=== PATIENT | male | born 1965 | race Caucasian/White ===

== ENCOUNTER 2017-11-07 19:04 | Emergency (ER) | payer BC, OTHER ==
[~2017-11-07] VITALS: Ht 188 cm; Wt 104.2 kg
[2017-11-07 19:14] VITALS: TEMP 37; Ht 188 cm; Wt 104.2 kg
--- NOTE | 2017-11-07 19:34 | EMERGENCY ROOM VISIT NOTE ---
History Report prepared by Salma: Shayla Cruz Under the Supervision of: Dr. Pavel Nash M.D. 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 Positive burning with urination, lower left sided back pain. Negative nausea, vomiting, recent trauma, scrotal pain, testicular pain, history of kidney stones. He notes when he woke up this morning, he had difficulty urinating and it was burning. He reports he tried drinking water all day, but then he began having hematuria with small clots. He is accompanied by his who reports that her 's urine has gotten bloodier since his first episode. The patient states he was recently seen at his PCP for fluid in his ears and notes he recently changed his diet to try and control his blood pressure. Source of History: patient, spouse/significant other () Onset: 4 hours sea captain Position: other (bladder) Quality: burning Timing: other (urine is getting bloodier since it began) Associated Symptoms: + back pain (lower left side), + urinary symptoms, No nausea, No vomiting Note: Negative recent trauma, scrotal pain, testicular pain, history of kidney stones Review of Systems See HPI for pertinent positives and negatives. A total of ten systems were reviewed and were otherwise negative. Past Medical & Surgical Medical Problems: (1) Diabetes (2) HTN (hypertension) Surgical Problems: (1) Hx of cholecystectomy Family History Diabetes mellitus High blood pressure Social History Smoking Status: Never Smoker Smokeless Tobacco Use: Yes Alcohol Use: occasionally Marital Status: Occupation Status: employed Current/Historical Medications Scheduled Ciprofloxacin Hcl (Cipro), 500 MG PO BID [Garlic Oil], 1 DOSE PO DAILY Scheduled PRN Ibuprofen Tab (Advil), 400-600 MG PO Q6H PRN for Pain Phenazopyridine HCl (Pyridium), 200 MG PO TID PRN for Frequency/Burning w/ Urination Allergies Coded Allergies: No Known Allergies (Unverified , 06/26/09) Physical Exam Vital Signs Date Time Temp Pulse Resp B/P (MAP) Pulse Ox O2 Delivery O2 Flow Rate FiO2 11/07/17 21:24 85 18 129/83 98 11/07/17 20:20 66 24 141/87 96 Room Air 11/07/17 19:14 37.0 82 18 152/91 100 Room Air Physical Exam GENERAL: Awake, alert, well-appearing, NAD HENT: Normocephalic, atraumatic. Clear fluid behind each TM. EYES: Normal conjunctiva. Sclera non-icteric. PERRL. No anisocoria. NECK: Supple. No nuchal rigidity. FROM. RESPIRATORY: CTAB, no rhonchi, wheezing, crackles CARDIAC: RRR, no MRG ABDOMEN: Soft, NTND, BS+ MSK: No chest wall TTP, no LE edema. No CVA TTP. NEURO: GCS 15, CN 2-12 intact, moves all 4s on command SKIN: No rash or jaundice noted. Medical Decision & Procedures ER Provider Diagnostic Interpretation: Radiology results as stated below per my review and radiologist interpretation: ABD/PELVIS WITHOUT FOR STONE CT DOSE: 1247.10 mGy.cm HISTORY: Flank pain FLANK PAIN TECHNIQUE: Multiaxial CT images of the abdomen and pelvis were performed without the use of intravenous and oral contrast according to the standard department stone protocol. A dose lowering technique was utilized adhering to the principles of ALARA. COMPARISON STUDY: None. FINDINGS: Minimal basilar dependent atelectasis. Prior cholecystectomy. Liver spleen and pancreas appear unremarkable. The adrenal glands are normal. Right kidney is negative for hydronephrosis. Left kidney is slightly edematous, with a trace amount of perinephric fat stranding. Prominence of the left renal pelvis. No evidence for well-defined obstructing calculus. Differential must include a recently passed calculus versus pyelonephritis. No evidence for abscess collection or obstructive change. Bladder is midline. The bowel pattern is considered nonobstructive. Normal appendix. IMPRESSION: 1. Mild edematous change of the left kidney with a trace amount of perinephric fat stranding. 2. No evidence for an obstructing calculus. 3. Diagnostic considerations include pyelonephritis versus recently passed calculus. The above report was generated using voice recognition software. It may contain grammatical, syntax or spelling errors. Electronically signed by: Sean Mcmillan M.D. 11/07/2017 8:17 PM Laboratory Results 11/07/17 19:50 Red Blood Count 4.86, Mean Corpuscular Volume 85.6, Mean Corpuscular Hemoglobin 29.4, Mean Corpuscular Hemoglobin Concent 34.4, Mean Platelet Volume 10.4, Neutrophils (%) (Auto) 81.9, Lymphocytes (%) (Auto) 6.5, Monocytes (%) (Auto) 10.4, Eosinophils (%) (Auto) 0.7, Basophils (%) (Auto) 0.2, Neutrophils # (Auto ) 13.09, Lymphocytes # (Auto) 1.04, Monocytes # (Auto) 1.66, Eosinophils # (Auto ) 0.11, Basophils # (Auto) 0.03 11/07/17 19:50 Test 11/07/17 19:10 11/07/17 19:50 Urine Color YELLOW Urine Appearance CLEAR (CLEAR) Urine pH 6.0 (4.5-7.5) Urine Specific Villanueva 1.020 (1.000-1.030) Urine Protein 3+ (NEG) Urine Glucose (UA) NEG (NEG) Urine Ketones NEG (NEG) Urine Occult Blood 2+ (NEG) Urine Nitrite POS (NEG) Urine Bilirubin NEG (NEG) Urine Urobilinogen NEG (NEG) Urine Leukocyte Esterase LARGE (NEG) Urine RBC >30 /hpf (0-4) Urine WBC >30 /hpf (0-5) Urine Epithelial Cells 0-5 /lpf (0-5) Urine Bacteria 4+ (NEG) White Blood Count 15.98 K/uL (4.8-10.8) Red Blood Count 4.86 M/uL (4.7-6.1) Hemoglobin 14.3 g/dL (14.0-18.0) Hematocrit 41.6 % (42-52) Mean Corpuscular Volume 85.6 fL (80-100) Mean Corpuscular Hemoglobin 29.4 pg (25-34) Mean Corpuscular Hemoglobin Concent 34.4 g/dl (32-36) Platelet Count 233 K/uL (130-400) Mean Platelet Volume 10.4 fL (7.4-10.4) Neutrophils (%) (Auto) 81.9 % Lymphocytes (%) (Auto) 6.5 % Monocytes (%) (Auto) 10.4 % Eosinophils (%) (Auto) 0.7 % Basophils (%) (Auto) 0.2 % Neutrophils # (Auto) 13.09 K/uL (1.4-6.5) Lymphocytes # (Auto) 1.04 K/uL (1.2-3.4) Monocytes # (Auto) 1.66 K/uL (0.11-0.59) Eosinophils # (Auto) 0.11 K/uL (0-0.5) Basophils # (Auto) 0.03 K/uL (0-0.2) RDW Standard Deviation 41.7 fL (36.4-46.3) RDW Coefficient of Variation 13.4 % (11.5-14.5) Immature Granulocyte % (Auto) 0.3 % Immature Granulocyte # (Auto) 0.05 K/uL (0.00-0.02) Prothrombin Time 10.1 SECONDS (9.0-12.0) Prothromb Time International Ratio 1.0 (0.9-1.1) Activated Partial Thromboplast Time 24.3 SECONDS (21.0-31.0) Partial Thromboplastin Ratio 0.9 Anion Gap 6.0 mmol/L (3-11) Est Creatinine Clear Calc Drug Dose 99.7 ml/min Estimated GFR () 88.7 Estimated GFR (Non- 76.5 BUN/Creatinine Ratio 20.2 (10-20) Calcium Level 8.6 mg/dl (8.5-10.1) Chemistry Specimen Hemolysis Laboratory results reviewed by me Medications Administered Medications (Trade) Dose Ordered Sig/Kim Route Start Time Stop Time Status Last Admin Dose Admin Ceftriaxone Sodium (Rocephin Inj) 1 gm NOW STAT IV 11/07/17 20:27 11/07/17 20:28 DC 11/07/17 20:51 1 GM ED Course 1927: The patient was evaluated in room B7. A complete history and physical exam was performed. 2039: I reevaluated the patient. Discussed results and discharge instructions: He verbalized understanding and agreement. The patient is ready for discharge. 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 Positive burning with urination, lower left sided back pain. Negative nausea, vomiting, recent trauma, scrotal pain, testicular pain, history of kidney stones. Nursing notes reviewed. Ancillary studies and prior records reviewed. Differential diagnosis: Etiologies such as renal colic, appendicitis, diverticulitis, mesenteric ischemia, aortic pathology, infections, inflammatory bowel disease, PUD, biliary pathology, UTI, as well as others were entertained. Patient was seen and evaluated the bedside. Patient did complain of some hematuria which began today. Patient did notice some left-sided discomfort but is not as apparent today. Patient has some burning urination. Patient denies any testicular or scrotal pain or swelling. Patient denies any penile pain. Patient otherwise is well-appearing. Patient is a fairly unremarkable exam. The patient is a non-smoker. Patient denies any recent trauma. Patient did have blood work completed along with a CT of the abdomen pelvis. The patient CT did show concern for possible Doyle. Given the patient's hematuria with bacteria as well as an elevated white count we will treat for pyelonephritis. Patient was given a first dose of Rocephin. Patient's other blood work is fairly unremarkable. The patient I believe is suitable for outpatient given his lack of fever and stable vital signs. Patient was also given family and marriage counsellor on his blood pressure and told to continue to follow-up. Patient was given strict follow-up, discharge, and return precautions. All questions were answered. Patient was deemed suitable for outpatient follow-up at this time. Patient agreed with the plan of care and was safely discharged home. Medication Reconcilliation Current Medication List: was personally reviewed by me Blood Pressure Screening Patient's blood pressure: Elevated blood pressure Blood pressure disposition: Referred to PCP Impression Primary Impression: Pyelonephritis Additional Impression: HTN (hypertension) Scribe Attestation The scribe's documentation has been prepared under my direction and personally reviewed by me in its entirety. I confirm that the note above accurately reflects all work, treatment, procedures, and medical decision making performed by me. Departure Information Dispostion Home / Self-Care Prescriptions Phenazopyridine HCl (Pyridium) 200 Mg Tab 200 MG PO TID Y for Frequency/Burning w/Urination, #6 TAB Prov: Pavel Nash M.D. 11/07/17 Ciprofloxacin Hcl (CIPRO) 500 Mg Tab 500 MG PO BID for 7 Days, #14 TAB Prov: Pavel Nash M.D. 11/07/17 Referrals No Doctor, Assigned (PCP) Patient Instructions My [facility], Pyelonephritis Dc Additional Instructions Please return to the emergency department if you have worsening or recurrent symptoms not amenable to at-home treatment. Please call for a follow-up appointment with her primary care physician. Please take your medications as prescribed. If you have other concerns and/or complaints please feel free to also call your primary care physician's office or return the ED for further evaluation, management, and treatment. You were found to have an elevated blood pressure today (>120 sytolic or >90 diastolic). Per medicare guidelines, you need to follow up with this blood pressure screening with your Primary Care Physician (PCP). For a new PCP call [phone]. You may take 600 mg Ibuprofen every 6 hours as needed for pain/fever with food unless told by your physician not to take NSAIDs. You may take tylenol 650 mg every 6 hours as needed for pain/fever unless told by your physician to not take it or have liver problems. You may take motrin and tylenol separately or at the same time. Take your medications as prescribed. If taking an antibiotic consider taking a probiotic and/or eating yogurt, but at the least, please take with food as it can cause upset stomach. If culture results are not available at discharge, if they are positive for concern of infection, you will be informed of the results as soon as they are available. You have been examined and treated today on an emergency basis only. This is not a substitute for, or an effort to provide, complete comprehensive medical care. It is impossible to recognize and treat all injuries or illnesses in a single emergency department visit. It is therefore important that you follow up closely with [facility], your PCP, and/or your specialist(s). Call as soon as possible for an appointment. Thank you for your time and consideration. I look forward to speaking with you again soon. Please don't hesitate to call us if you have any questions. Problem Qualifiers Additional Impression: HTN (hypertension) Hypertension type: unspecified Qualified Codes: I10 - Essential (primary) hypertension
[2017-11-07 19:59] LABS: BASO % 0.2 %; BASO ABS # 0.03 K/uL (0-0.2); EOS % 0.7 %; EOS ABS # 0.11 K/uL (0-0.5); HEMATOCRIT 41.6 % (42-52); HEMOGLOBIN 14.3 g/dL (14.0-18.0); IG# 0.05 K/uL (0.00-0.02); LYMPH % 6.5 %; LYMPH ABS # 1.04 K/uL (1.2-3.4); MEAN CELL VOLUME 85.6 fL (80-100); MEAN CORPUSCULAR HEMOGLOBIN 29.4 pg (25-34); MEAN CORPUSCULAR HGB CONC 34.4 g/dl (32-36); MEAN PLATELET VOLUME 10.4 fL (7.4-10.4); MONO % 10.4 %; MONO ABS # 1.66 K/uL (0.11-0.59); NEUT % 81.9 %; NEUT ABS # 13.09 K/uL (1.4-6.5); PLATELET COUNT 233 K/uL (130-400); RED CELL DISTRIBUTION WIDTH CV 13.4 % (11.5-14.5); RED CELL DISTRIBUTION WIDTH SD 41.7 fL (36.4-46.3); WHITE BLOOD COUNT 15.98 K/uL (4.8-10.8)
[2017-11-07 20:09] LABS: PTT PATIENT 24.3 SECONDS (21.0-31.0)
--- NOTE | 2017-11-07 20:18 | DIAGNOSTIC IMAGING REPORT ---
ABD/PELVIS WITHOUT FOR STONE CT DOSE: 1247.10 mGy.cm HISTORY: Flank pain FLANK PAIN TECHNIQUE: Multiaxial CT images of the abdomen and pelvis were performed without the use of intravenous and oral contrast according to the standard department stone protocol. A dose lowering technique was utilized adhering to the principles of ALARA. COMPARISON STUDY: None. FINDINGS: Minimal basilar dependent atelectasis. Prior cholecystectomy. Liver spleen and pancreas appear unremarkable. The adrenal glands are normal. Right kidney is negative for hydronephrosis. Left kidney is slightly edematous, with a trace amount of perinephric fat stranding. Prominence of the left renal pelvis. No evidence for well-defined obstructing calculus. Differential must include a recently passed calculus versus pyelonephritis. No evidence for abscess collection or obstructive change. Bladder is midline. The bowel pattern is considered nonobstructive. Normal appendix. IMPRESSION: 1. Mild edematous change of the left kidney with a trace amount of perinephric fat stranding. 2. No evidence for an obstructing calculus. 3. Diagnostic considerations include pyelonephritis versus recently passed calculus. The above report was generated using voice recognition software. It may contain grammatical, syntax or spelling errors. Electronically signed by: Sean Mcmillan M.D. 11/07/2017 8:17 PM Dictated Date/Time: 11/07/2017 8:14 PM
[2017-11-07 20:27] LABS: CALCIUM 8.6 mg/dl (8.5-10.1); CREATININE 1.09 mg/dl (0.60-1.40); POTASSIUM 4.3 mmol/L (3.5-5.1)
[2017-11-07] MEDS ORDERED: CEFTRIAXONE SOD INJ 1 GM ADDVIAL IV STA (20:27)
[2017-11-07] MEDS ORDERED: PHEN-876 PO (20:37)
[2017-11-07] MEDS ORDERED: CIPR-255 PO (20:37)
[2017-11-07] MEDS ORDERED: IBUP-103 PO (21:18)
[2017-11-07] MEDS ORDERED: GARLIC OIL PO (21:18)
[2017-11-07 21:24] VITALS: BP 129/83; PULSE 85; O2SAT 98
--- NOTE | 2017-11-09 16:21 | Pharmacy Progress Note ---
ED Pharmacist Culture FollowUp Date of Service: Nov 09, 2017. Patient was sent home with a prescription for Ciprofloxacin 500 mg BID x 7 days , which should cover the E. coli growing from the patient's urine culture.
== END 2017-11-07 21:24 | disposition home or self-care (01) ==
LOC: C.EDB 19:06
DX: N12 Tubulo-interstitial nephritis, not specified as acute or chronic (principal); I10 Essential (primary) hypertension; D72.829 Elevated white blood cell count, unspecified; E11.9 Type 2 diabetes mellitus without complications

== ENCOUNTER → 2017-11-23 | Outpatient (CLI) | payer OTHER ==
[~2017-11-23] MED LIST: CIPR-255 PO; GARLIC OIL PO; IBUP-103 PO; PHEN-876 PO
[2017-11-23 13:47] LABS: BLOOD UREA NITROGEN 20 mg/dl (7-18); CALCIUM 8.8 mg/dl (8.5-10.1); CARBON DIOXIDE 27 mmol/L (21-32); CHOLESTEROL 119 mg/dl (0-200); CREATININE 0.85 mg/dl (0.60-1.40); GLUCOSE 97 mg/dl (70-99); LDL CHOLESTEROL CALCULATED 59 mg/dl; POTASSIUM 4.3 mmol/L (3.5-5.1); SODIUM 140 mmol/L (136-145)
== END | disposition home or self-care (01) ==
LOC: C.LABBFT 10:32
PROVIDERS: ATTEND Physician Assistant Medical
DX: I10 Essential (primary) hypertension (principal)